=== PATIENT | female | born 1960 | race African-American/Black ===

== ENCOUNTER 2021-03-01 04:29 | Emergency (ER) | payer OTHER ==
[2021-03-01 04:43] VITALS: BP 160/81; PULSE 83; TEMP 99.4; BMI 30.8
[2021-03-01] MEDS ORDERED: SULFAMETHOXAZOLE/TRIMETHOPRIM 800MG/160MG D.S. TABLET ONE (05:01)
[2021-03-01] MEDS ORDERED: KETOROLAC TROMETHAMINE 15 MG/ML VIAL ONE (05:02)
[2021-03-01] MEDS ORDERED: SULFAMETHOXAZOLE/TRIMETHOPRIM 800MG/160MG D.S. TABLET PO ONE (05:03)
[2021-03-01] MEDS ORDERED: KETOROLAC TROMETHAMINE 15 MG/ML VIAL IM ONE (05:03)
== END 2021-03-01 05:17 | disposition home or self-care (01) ==
LOC: FER 04:29
PROC: 3E0233Z Introduction of Anti-inflammatory into Muscle, Percutaneous Approach (ICD-10-PCS; principal; 2021-03-01)
DX: L03.317 Cellulitis of buttock (principal)
CPT/HCPCS: 99284-25

== ENCOUNTER 2021-03-03 01:39 | Emergency (ER) | payer OTHER ==
[2021-03-03 01:47] VITALS: BP 155/89; PULSE 74; TEMP 99.4; BMI 30.7
[2021-03-03] MEDS ORDERED: KETOROLAC TROMETHAMINE 30 MG/1 ML VIAL IVPUSH ONE (02:30)
[2021-03-03] MEDS ORDERED: KETOROLAC TROMETHAMINE 30 MG/1 ML VIAL ONE (02:37)
[2021-03-03 03:50] LABS: BASO % 0.5 % (0-2.0); EOS % 0.8 % (0-4.5); HEMATOCRIT 36.2 % (32.4-45.2); HEMOGLOBIN 12.3 GM/dL (10.7-15.3); LYMPH % 40.1 % (8-40); MCH 29.5 pg (25.7-33.7); MCHC 34.1 g/dl (32.0-36.0); MEAN CELL VOLUME 86.7 fl (80-96); MEAN PLT VOLUME 7.7 fl (7.5-11.1); MONO % 9.2 % (3.8-10.2); NEUT % 49.4 % (42.8-82.8); PLATELET COUNT 339 10^3/uL (134-434); RBC 4.18 M/mm3 (3.60-5.2); RDW 13.2 % (11.6-15.6); WHITE BLOOD COUNT 6.5 K/mm3 (4.0-10.0)
[2021-03-03 04:07] LABS: CHLORIDE 102 mmol/L (98-107); SODIUM 136 mmol/L (136-145)
[2021-03-03 04:09] LABS: CALCIUM 9.3 mg/dL (8.5-10.1)
[2021-03-03 04:10] LABS: ALBUMIN 4.3 g/dl (3.4-5.0); ANION GAP 6 MMOL/L (8-16); BLOOD UREA NITROGEN 13.7 mg/dL (7-18); CO2 28 mmol/L (21-32)
[2021-03-03 04:13] LABS: CREATININE 1.2 mg/dL (0.55-1.3); SGOT/AST 58 U/L (15-37); SGPT/ALT 45 U/L (13-61)
[2021-03-03 04:15] LABS: BILIRUBIN,TOTAL 0.4 mg/dL (0.2-1); TOT PROT 7.6 g/dl (6.4-8.2)
[2021-03-03 04:16] LABS: ALK PHOS 70 U/L (45-117)
[2021-03-03 04:21] LABS: GLUCOSE,RANDOM 44 mg/dL (74-106)
[2021-03-03] MEDS ORDERED: SODIUM CHLORIDE 500 ML IV STA (05:15)
[2021-03-03] MEDS ORDERED: ACETAMINOPHEN 1000 MG/100 ML VIAL (NON FORMULARY) IVPB ONE (08:17)
[2021-03-03] MEDS ORDERED: ACETAMINOPHEN INJECTION 100 ML IVPB ONE (08:32)
[2021-03-03] MEDS ORDERED: KETOROLAC TROMETHAMINE 15 MG/ML VIAL IVPUSH ONE (10:25)
[2021-03-03] MEDS ORDERED: KETOROLAC TROMETHAMINE 15 MG/ML VIAL ONE (10:26)
== END 2021-03-03 10:37 | disposition home or self-care (01) ==
LOC: FER 01:39
PROC: 3E0333Z Introduction of Anti-inflammatory into Peripheral Vein, Percutaneous Approach (ICD-10-PCS; principal; 2021-03-03)
PROC: 3E033GC Introduction of Other Therapeutic Substance into Peripheral Vein, Percutaneous Approach (ICD-10-PCS; 2021-03-03)
PROC: 3E0333Z Introduction of Anti-inflammatory into Peripheral Vein, Percutaneous Approach (ICD-10-PCS; 2021-03-03)
DX: L03.314 Cellulitis of groin (principal)
CPT/HCPCS: 36415; 74177-TC; 80053; 85025; 99285-25; J0131

== ENCOUNTER 2021-03-26 09:14 | Emergency (ER) | payer OTHER ==
[2021-03-26] MEDS ORDERED: KETOROLAC TROMETHAMINE 30 MG/1 ML VIAL ONE (09:32)
[2021-03-26] MEDS ORDERED: KETOROLAC TROMETHAMINE 30 MG/1 ML VIAL IM ONE (09:32)
[2021-03-26 09:49] VITALS: TEMP 98.7; BMI 29.3
[2021-03-26 10:21] VITALS: BP 145/83; PULSE 82
[2021-03-26 10:23] LABS: ALBUMIN 4.2 g/dl (3.4-5.0); BILIRUBIN,TOTAL 0.5 mg/dl (0.2-1); CALCIUM 9.4 mg/dl (8.5-10); TOT PROT 7.2 g/dl (6.4-8.2)
[2021-03-26 10:29] LABS: BASO % 1.7 % (0-2.0); EOS % 2.1 % (0-4.5); HEMOGLOBIN 12.4 GM/dl (10.7-15.3); MCH 30.2 pg (25.7-33.7); MCHC 33.7 g/dl (32.0-36.0); MEAN CELL VOLUME 89.7 fl (80-96); MEAN PLT VOLUME 8.2 fl (7.5-11.1); MONO % 11.1 % (3.8-10.2); NEUT % 43.1 % (42.8-82.8); PLATELET COUNT 323 10^3/uL (134-434); RBC 4.12 M/mm3 (3.60-5.2); RDW 14.5 % (11.6-15.6); WHITE BLOOD COUNT 4.9 K/mm3 (4.0-10.8)
[2021-03-26 10:30] LABS: ERYTHROCYTE SEDIMENTATION RATE 12 mm/hr (0-30)
== END 2021-03-26 10:47 | disposition home or self-care (01) ==
LOC: FER 09:14
PROC: 3E0233Z Introduction of Anti-inflammatory into Muscle, Percutaneous Approach (ICD-10-PCS; principal; 2021-03-26)
DX: M54.41 Lumbago with sciatica, right side (principal)
CPT/HCPCS: 36415; 72170-TC-FY; 80053; 85025; 85651; 86140; 86694; 86695; 86696; 99284-25

== ENCOUNTER 2021-04-01 05:58 | Emergency (ER) | payer OTHER ==
[2021-04-01 06:13] VITALS: BP 158/90; PULSE 97; TEMP 99.8; BMI 29.3
[2021-04-01] MEDS ORDERED: KETOROLAC TROMETHAMINE 60 MG/2 ML VIAL IM ONE (06:29)
[2021-04-01] MEDS ORDERED: KETOROLAC TROMETHAMINE 60 MG/2 ML VIAL ONE (06:29)
== END 2021-04-01 06:48 | disposition home or self-care (01) ==
LOC: SUPCPDRO 05:58 → FER 05:58
PROC: 3E0233Z Introduction of Anti-inflammatory into Muscle, Percutaneous Approach (ICD-10-PCS; principal; 2021-04-01)
DX: M79.10 Myalgia, unspecified site (principal)
CPT/HCPCS: 99283-25

== ENCOUNTER 2021-04-08 18:23 | Emergency (ER) | payer OTHER ==
[2021-04-08 18:58] VITALS: BP 144/67; PULSE 91; TEMP 99.7; BMI 29.3
[2021-04-08] MEDS ORDERED: ACETAMINOPHEN 500 MG TABLET (FP) PO ONE (19:41)
[2021-04-08] MEDS ORDERED: ACETAMINOPHEN 325 MG TABLET (FP) ONE (19:45)
[2021-04-08] MEDS ORDERED: morphine CARPU-JECT 2 MG/1 ML DISP.SYRIN IM ONE (20:11)
[2021-04-08] MEDS ORDERED: GABAPENTIN 300 MG CAPSULE PO ONE (20:12)
[2021-04-08] MEDS ORDERED: morphine SULFATE 4 MG/ML VIAL ONE (20:16)
[2021-04-08] MEDS ORDERED: IBUPROFEN 600 MG TABLET (FP) PO ONE (20:16)
[2021-04-08] MEDS ORDERED: hydrOXYzine PAMOATE 25 MG CAPSULE (FP) PO ONE ×2 (20:24→20:27)
[2021-04-09] MEDS ORDERED: oxyCODONE HCL 5 MG TABLET PO ONE (00:30)
[2021-04-09] MEDS ORDERED: oxyCODONE HCL 5 MG TABLET ONE (00:43)
== END 2021-04-09 00:49 | disposition home or self-care (01) ==
LOC: FER 18:23
PROC: 3E023NZ Introduction of Analgesics, Hypnotics, Sedatives into Muscle, Percutaneous Approach (ICD-10-PCS; principal; 2021-04-08)
DX: B02.29 Other postherpetic nervous system involvement (principal); R10.2 Pelvic and perineal pain
CPT/HCPCS: 72193-TC; 99285-25

== ENCOUNTER 2021-04-17 05:09 | Emergency (ER) | payer OTHER ==
[2021-04-17 05:17] VITALS: BP 154/80; PULSE 82; TEMP 99.4; BMI 29.3
[2021-04-17] MEDS ORDERED: KETOROLAC TROMETHAMINE 60 MG/2 ML VIAL IM ONE (05:24)
[2021-04-17] MEDS ORDERED: GABAPENTIN 300 MG CAPSULE PO ONE (05:25)
[2021-04-17] MEDS ORDERED: GABAPENTIN 300 MG CAPSULE ONE (05:27)
[2021-04-17] MEDS ORDERED: KETOROLAC TROMETHAMINE 60 MG/2 ML VIAL ONE (05:27)
== END 2021-04-17 06:25 | disposition home or self-care (01) ==
LOC: SUPCPDRO 05:09 → FER 05:09
PROC: 3E023GC Introduction of Other Therapeutic Substance into Muscle, Percutaneous Approach (ICD-10-PCS; principal; 2021-04-17)
DX: M54.89 Other dorsalgia (principal)
CPT/HCPCS: 99284-25